=== PATIENT | female | born 1985 | race African-American/Black ===

== ENCOUNTER 2016-10-10 23:51 | Emergency (ER) | payer OTHER ==
[~2016-10-10] VITALS: Ht 170.2 cm; Wt 77.1 kg
[~2016-10-10 23:51] MED LIST: ELIMITE60 G1 TP; ELIMITE60 GM TOP; LOTRISONE CREAM45 GM TOP; NO MEDICATIONS; PERMETHRIN 5% TOP
== END 2016-10-11 01:44 | disposition home or self-care (01) ==
LOC: SED 23:51
DX: H10.32 Unspecified acute conjunctivitis, left eye (principal); F17.210 Nicotine dependence, cigarettes, uncomplicated
CPT/HCPCS: 90471; 90715; 99283